=== PATIENT | female | born 1990 | race Caucasian/White ===

== ENCOUNTER 2017-07-08 13:03 | Emergency (ER) | payer OTHER ==
--- NOTE | ~2017-07-08 | CT16 ---
[facility] [place] [facility] TEXT RESULTS PATIENT: CHRISTINE HERNANDEZ LOCATION: SED : [birth year] UNIT #: [id number] AGE: [address]: Theodore Pulliam MD SEX: F ORDER DR: [id number] [place] [id number] E MR#: [id number] Acc #: [id number] NAME: CHRISTINE HERNANDEZ : 1990 SEX: F STUDY DATE/TIME: 07/08/2017 14:51 UNIT: SED ROOM: STUDY DESCRIPTION: CT Angio Chest for PE Attending Physician: Theodore Pulliam M.D. Ordering Physician: Theodore Pulliam M.D. Primary Care Physician: No Primary Care Physician MEDICAL IMAGING REPORT This report is preliminary unless electronic signature is present. EXAM CTA chest. INDICATIONS Right-sided chest pain. Recent abdominal surgery. TECHNIQUE CT angiography of the chest utilizing 100 mL Isovue-370 IV contrast. Coronal 3-D MIP reconstructions and sagittal reconstructions were obtained. This CT exam was performed with one or more of the following radiation dose reduction techniques: automatic exposure control, adjustment of mA and/or kV according to patient size, and iterative reconstruction. COMPARISON Concurrent CT abdomen and pelvis obtained the same day. FINDINGS There is no pulmonary embolus. No thoracic aortic aneurysm or dissection. No pericardial or pleural effusion. No focal consolidation. Central airways are patent. Please refer to separate dictated report for details on the abdomen. There is a large 3.7 x 2.7 x 3.3 cm mass in the upper/inner quadrant of the left breast. Recommend nonemergent breast ultrasound to further evaluate. This is likely a hyperdense cyst or a fibroadenoma. No acute osseous abnormalities. IMPRESSION 1. Negative for pulmonary embolus. 2. No acute findings in the chest. [facility] A Service [facility] RADIOLOGY TEXT RESULTS PATIENT: CHRISTINE HERNANDEZ LOCATION: SED : 92 UNIT #: [id number] AGE: [address]: Theodore Pulliam MD SEX: F ORDER DR: 3. 3.7 cm mass in the upper/inner quadrant of the left breast. Given the patient's age, this probably represents a hemorrhagic/proteinaceous cyst or a fibroadenoma. Nonemergent ultrasound of the left breast is recommended to fully characterize. 4. Please refer to separately dictated report for details on the abdomen and pelvis. Dictated by... Froy Jose M.D. THIS IS AN ELECTRONICALLY VERIFIED REPORT Froy Jose M.D. at 07/09/2017 8:22 AM ELKE/celina TD: 07/08/2017 22:51 JOB #: [id number] MEDICAL IMAGING REPORT Page 1 of 1
--- NOTE | ~2017-07-08 | CT2 ---
[facility] A Service of [facility] / [facility] RADIOLOGY TEXT RESULTS PATIENT: CHRISTINE HERNANDEZ LOCATION: SED : [birth year] UNIT #: [id number] AGE: [address]: Theodore Pulliam MD SEX: F ORDER DR: [id number] [address] [address] [id number] E MR#: [id number] Acc #: [id number] NAME: CHRISTINE HERNANDEZ : 1990 SEX: F STUDY DATE/TIME: 07/08/2017 13:36 UNIT: SED ROOM: STUDY DESCRIPTION: CT Abd and Pelv W Cont Attending Physician: Theodore Pulliam M.D. Ordering Physician: Theodore Pulliam M.D. Primary Care Physician: No Primary Care Physician MEDICAL IMAGING REPORT This report is preliminary unless electronic signature is present. EXAM CT abdomen and pelvis. INDICATIONS Recent tubal excision. Redness and pain at the surgical site. TECHNIQUE CT of the abdomen and pelvis with IV contrast. Coronal and sagittal reconstructions were obtained. This CT exam was performed with one or more of the following radiation dose reduction techniques: automatic exposure control, adjustment of mA and/or kV according to patient size, and iterative reconstruction. COMPARISON None available. FINDINGS Please refer to separately dictated report for details on the chest. ABDOMEN: There is some mild periportal edema. This is nonspecific however it is most commonly associated with acute hepatic inflammation. The liver is mildly enlarged measuring 18 to 19 cm. The gallbladder is not distended. No intrahepatic or extrahepatic biliary dilatation. The spleen, adrenal glands, pancreas, and kidneys are within normal limits. The bowel is not dilated. There is mild induration and inflammation associated with the umbilicus. Patient had a recent laparoscopic port placement. This is indicative of a cellulitis. There is a small volume of free fluid the pelvis. No loculated fluid collections are identified. There are a few foci of intraperitoneal air which is not unexpected given the recent surgery. [facility] A Service of [facility] / [facility] RADIOLOGY TEXT RESULTS PATIENT: CHRISTINE HERNANDEZ LOCATION: SED : 92 UNIT #: [id number] AGE: [address]: Theodore Pulliam MD SEX: F ORDER DR: The bladder is unremarkable. No acute osseous abnormalities. IMPRESSION 1. Mild induration and inflammation associated with the umbilicus. This is presumably at the site of the patient's laparoscopic port placement. This is most consistent with a hematoma/seroma, however, correlate for any evidence of a cellulitis. No loculated drainable fluid collections. 2. Small volume free fluid the pelvis is likely physiologic or postsurgical. 3. A few small foci of intraperitoneal gas is likely related to the recent surgery. 4. Mild periportal edema is nonspecific however is often associated with acute hepatic inflammation. Please correlate with liver function tests. Dictated by... Froy Jose M.D. THIS IS AN ELECTRONICALLY VERIFIED REPORT Froy Jose M.D. at 07/09/2017 8:22 AM ELKE/celina TD: 07/08/2017 22:32 JOB #: [id number] MEDICAL IMAGING REPORT Page 1 of 1
--- NOTE | ~2017-07-08 | EKG ---
PATIENT: CHRISTINE HERNNADEZ UNIT #: [id number] Ventricular Rate: 70 BPM Atrial Rate: 70 BPM P-R Interval: 130 ms QRS Duration: 82 ms Q-T Interval: 360 ms QTC Calculation(Bezet): 388 ms P [place]: 74 degrees Calculated R [place]: 67 degrees Calculated T [place]: 36 degrees Diagnosis Line: Sinus rhythm with marked sinus arrhythmia Diagnosis Line: T wave abnormality, consider anterior ischemia Diagnosis Line: Abnormal ECG Diagnosis Line: No previous ECGs available Diagnosis Line: Confirmed by XIOMARA LOCK MD ([id number]) on 07/09/2017 Diagnosis Line: 4:38:15 PM INTERPRETING MD: ASHVIN ORELLANA
[2017-07-08] MEDS ORDERED: PERCOCET5/325 PO (13:05)
[2017-07-08] MEDS ORDERED: IBUPROFEN800 MG PO (13:05)
[2017-07-08 13:52] LABS: BASOPHIL# 0.1 X10e3 (0-0.3); BASOPHIL% 0.9 % (0-2.5); DIFF IND NO; EOSINOPHIL# 0.2 X10e3 (0-0.7); EOSINOPHIL% 1.3 % (0.0-7.0); HEMATOCRIT 35.1 % (35.0-45.0); HEMOGLOBIN 11.8 gm/dL (12.0-16.0); LYMPHOCYTE# 5.8 X10e3 (1.0-3.5); LYMPHOCYTE% 36.6 % (17.0-45.0); MEAN CELL VOLUME 87.4 FL (83-96); MEAN CORPUSCULAR HEMOGLOBIN 29.5 PG (28-34); MEAN CORPUSCULAR HGB CONC 33.7 g/dL (30-36); MEAN PLATELET VOLUME 11.8 FL (6.5-11.5); MONOCYTE# 1.1 X10e3 (0-1.0); MONOCYTE% 7.1 % (3.0-12.0); NEUTROPHIL# 8.6 X10e3 (1.5-7.1); NEUTROPHIL% 54.1 % (40-75); PLATELET COUNT 138 X10e3 (140-420); RED BLOOD COUNT 4.01 X10e (3.90-5.30); WHITE BLOOD COUNT 15.8 X10e3 (4.0-10.5)
[2017-07-08 14:15] LABS: BUN/CREATININE RATIO 7.77; CALCIUM SERUM 8.7 mg/dL (8.4-10.2); CREATININE SERUM 0.9 mg/dL (0.6-1.4); GLOM FILT RATE Estimated 89.6 mL/min (>60); POTASSIUM 3.3 mmol/L (3.5-5.1)
== END 2017-07-08 16:26 | disposition home or self-care (01) ==
LOC: SED 13:03
PROVIDERS: Emergency Medicine
DX: R07.89 Other chest pain (principal); L03.311 Cellulitis of abdominal wall; F17.200 Nicotine dependence, unspecified, uncomplicated
CPT/HCPCS: 36415; 71275; 74177; 80048; 85025; 93005; 96374; 96375; 99285; J1200; J1885; J2405; Q9967